=== PATIENT | female | born 1965 | race Hispanic/Latino ===

== ENCOUNTER 2020-12-06 06:56 | Emergency (ER) | payer SELFPAY ==
[2020-12-06 21:09] LABS: SARS-CoV-2 PCR by NAA Not Detected (NotDetected)
== END 2020-12-06 08:10 | disposition home or self-care (01) ==
LOC: CSHERS 06:56
DX: J06.9 Acute upper respiratory infection, unspecified (principal); E11.9 Type 2 diabetes mellitus without complications; Z20.822 Contact with and (suspected) exposure to COVID-19
CPT/HCPCS: 36416; 99284; U0003; U0005

== ENCOUNTER 2021-06-13 18:03 | Emergency (ER) | payer SELFPAY ==
[2021-06-13] MEDS ORDERED: Triple Antibiotic Oint 1 GM Packet ONE (19:44)
[2021-06-13] MEDS ORDERED: Boostrix 0.5 ML (Tdap) VIAL ONE (19:59)
== END 2021-06-13 20:13 | disposition home or self-care (01) ==
LOC: CSHERS 18:03
DX: S60.512A Abrasion of left hand, initial encounter (principal); E11.9 Type 2 diabetes mellitus without complications; W20.8XXA Other cause of strike by thrown, projected or falling object, initial encounter
CPT/HCPCS: 90471; 90715

== ENCOUNTER 2021-07-29 16:14 | Emergency (ER) | payer SELFPAY | END 2021-07-29 17:30 | disposition home or self-care (01) | LOC: CSHERS 16:14 | DX: Z48.00 Encounter for change or removal of nonsurgical wound dressing (principal); I10 Essential (primary) hypertension; E11.9 Type 2 diabetes mellitus without complications | CPT/HCPCS: 99282 ==

== ENCOUNTER 2024-09-15 10:29 | Outpatient (CLI) | payer OTHER | END 2024-09-15 10:30 | disposition home or self-care (01) | LOC: CSHMAMMO 10:29 | PROVIDERS: ATTEND Family Medicine | DX: N64.89 Other specified disorders of breast (principal) | CPT/HCPCS: G0279 ==

== ENCOUNTER 2024-09-27 08:58 | Outpatient (CLI) | payer OTHER | END 2024-09-27 08:59 | disposition home or self-care (01) | LOC: CSHMAMMO 08:58 | PROVIDERS: ATTEND Family Medicine | DX: Z78.0 Asymptomatic menopausal state (principal) | CPT/HCPCS: 77080 ==

== ENCOUNTER 2024-10-06 07:24 | Day surgery (SDC) | payer OTHER ==
[2024-10-05 08:05] VITALS: BMI 38.2
[2024-10-06] MEDS ORDERED: PROPOFOL 40 ML ONE (08:08)
[2024-10-06] MEDS ORDERED: PROPOFOL 20 ML ONE (10:40)
== END 2024-10-06 11:40 | disposition home or self-care (01) ==
LOC: CSHSDC 07:24
PROVIDERS: ATTEND Surgery
PROC: 0DBN8ZX Excision of Sigmoid Colon, Via Natural or Artificial Opening Endoscopic, Diagnostic (ICD-10-PCS; principal; 2024-10-06)
DX: Z12.11 Encounter for screening for malignant neoplasm of colon (principal); K63.5 Polyp of colon; K57.30 Diverticulosis of large intestine without perforation or abscess without bleeding; K64.4 Residual hemorrhoidal skin tags; I10 Essential (primary) hypertension; E11.9 Type 2 diabetes mellitus without complications; E78.5 Hyperlipidemia, unspecified; Z79.84 Long term (current) use of oral hypoglycemic drugs; Z79.85 Long-term (current) use of injectable non-insulin antidiabetic drugs; Z79.899 Other long term (current) drug therapy
CPT/HCPCS: 88305; J2704